=== PATIENT | female | born 1990 | race African-American/Black ===

== ENCOUNTER 2016-12-27 15:12 | Emergency (ER) | payer MEDICAID ==
[~2016-12-27 15:12] MED LIST: DOXY10TA PO; METR500T10 PO; PREN1CHW7 PO
[2016-12-27 15:14] VITALS: BP 164/84; PULSE 89; RESP 14; TEMP 98.2; O2SAT 99
[2016-12-27 15:40] VITALS: BP 125/70; PULSE 99; RESP 18; O2SAT 99
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
[2016-12-27] MEDS ORDERED: IOHEXOL 350 MG/ML 10 ML VIAL (for RAD DIAG) IV ONE (17:12)
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
[2017-02-11] MEDS ORDERED: METR500T10 PO (09:53)
[2017-02-17] MEDS ORDERED: TERC0.4C2 VAGINAL (13:35)
== END 2016-12-27 18:12 | disposition home or self-care (01) ==
LOC: NEPD 15:12
DX: O26.891 Other specified pregnancy related conditions, first trimester (principal); S10.93XA Contusion of unspecified part of neck, initial encounter; S10.91XA Abrasion of unspecified part of neck, initial encounter; S20.419A Abrasion of unspecified back wall of thorax, initial encounter; Z3A.14 14 weeks gestation of pregnancy; Y04.8XXA Assault by other bodily force, initial encounter; Y92.810 Car as the place of occurrence of the external cause; Y99.8 Other external cause status
CPT/HCPCS: 70498; 99284; Q9967

== ENCOUNTER → 2017-02-03 | Outpatient (CLI) | payer MEDICAID ==
[~2017-02-03] MED LIST changes: -DOXY10TA PO; -METR500T10 PO
== END ==
LOC: HPND 10:48
PROVIDERS: ATTEND Obstetrics & Gynecology
DX: O35.1XX0 Maternal care for (suspected) chromosomal abnormality in fetus, not applicable or unspecified (principal); O09.292 Supervision of pregnancy with other poor reproductive or obstetric history, second trimester; O09.212 Supervision of pregnancy with history of pre-term labor, second trimester; O26.22 Pregnancy care for patient with recurrent pregnancy loss, second trimester; O44.42 Low lying placenta NOS or without hemorrhage, second trimester; Z3A.19 19 weeks gestation of pregnancy
CPT/HCPCS: 76811; 76817

== ENCOUNTER → 2017-03-04 | Outpatient (CLI) | payer MEDICAID ==
[~2017-03-04] MED LIST changes: +FERR325T8 PO; +METR500T10 PO; +TERC0.4C2 VAGINAL
== END ==
LOC: HPND 13:58
PROVIDERS: ATTEND Obstetrics & Gynecology
DX: O09.292 Supervision of pregnancy with other poor reproductive or obstetric history, second trimester (principal); O09.212 Supervision of pregnancy with history of pre-term labor, second trimester; O44.42 Low lying placenta NOS or without hemorrhage, second trimester; Z3A.23 23 weeks gestation of pregnancy
CPT/HCPCS: 76816

== ENCOUNTER 2017-03-09 17:07 | Emergency (ER) | payer MEDICAID ==
[~2017-03-09 17:07] MED LIST changes: -FERR325T8 PO
--- NOTE | 2017-03-09 17:51 | PD ---
HPI Chief Complaint "passed out", blurry vision, cramping Date Seen: Mar 09, 2017 Time Seen: 17:47 Travel History International Travel<30 Days: No Contact w/Intl Traveler<30Days: No Known Affected Area: No History of Present Illness HPI 27-year-old G 10 P1 at 24 weeks today comes in today complaining of an episode where she passed out. Patient had complained to her OB provider of 2 prior occasions where she stood up and passed out and states that it happened again today right eye she was getting out of the shower. Patient denies chest pain, coughing, fatigue. She states that she does pass out fairly easily. She has not yet had her glucose tolerance test for . She also complains of some lower cramping in the groin that is mild. Patient has a history of a C- section and when she was 15 years old that resulted in an abruption and severe preeclampsia. Patient has been maintained on a baby aspirin and calcium this and has seen maternal medicine for continued care. Para: 1 : 10 Miscarriage: 2 : 6 History Past Medical History Medical History: Denies Significant Hx Obstetric History Obstetric History from an abruption was severe preeclampsia with delivery of a 2 lbs. 14 oz. child at [facility] Multiple of miscarriages and abortions Past Surgical History Narrative Surgical D&C 2 section Family History Family History: Negative Social History Alcohol Use: No Tobacco Use: No Substance Abuse: No Allergies-Medications (Allergen,Severity, Reaction): Coded Allergies: Phenergan (Verified Allergy, Severe, Itching, rash, 02/11/17) Home Meds Active Scripts Terconazole Vaginal Cream 0.4 % Cream1 Appl VAGINAL HS #45 GM Ref 0 For seven days Prov:Jing Santos 02/17/17 Metronidazole 500 Mg [id number] Mg PO BID #14 TAB Ref 0 Prov:Jing Santos 02/11/17 Vit W/ Ferric Phospha (Vitafol Gummies 3.33-0.333-34.8 mg)1 Chw Chw1 Chew PO DAILY #60 BOTTLE Ref 5 Prov:Becky Zepeda CNM [employer]OUNDS 11/17/16 Review of Systems Except as stated in HPI: all other systems reviewed are Neg Physical Exam Narrative GENERAL: Well-nourished, well-developed patient. SKIN: Warm and dry. HEAD: Normocephalic and atraumatic. EYES: No scleral icterus. No injection or drainage. ENT: No nasal drainage noted. Mucous membranes pink. Airway patent. NECK: Supple, trachea midline. No JVD. CARDIOVASCULAR: Regular rate and rhythm without murmurs, gallops, or rubs. RESPIRATORY: Breath sounds equal bilaterally. No accessory muscle use. ABDOMEN/GI: Abdomen soft, non-tender, bowel sounds present, no rebound, no guarding Gravid to [-22] weeks size Fundal Height: [-] GENITOURINARY: Deferred External Genitalia: intact and normal in appearance BUS glands: [-] Cervix: [-] Dilatation: [-] Effacement: [-] Station: [-] Presentation: [-] Membranes: [intact or ruptured] Uterine Contractions: [-] FHT's: Category: [1-] Baseline: [140-] Reactive: [-Moderate] Variability: [-Moderate] Decels: [-Absent] EXTREMITIES: No cyanosis or edema. BACK: Nontender without obvious deformity. No CVA tenderness. NEUROLOGICAL: Awake and alert. Motor and sensory grossly within normal limits. Five out of 5 muscle strength in all muscle groups. Normal speech. Data Data Vital Signs Reviewed: Yes Labs Laboratory Tests Test 03/09/17 17:45 White Blood Count 10.2 TH/MM3 Red Blood Count 3.42 MIL/MM3 Hemoglobin 10.2 GM/DL Hematocrit 29.5 % Mean Corpuscular Volume 86.4 FL Mean Corpuscular Hemoglobin 29.9 PG Mean Corpuscular Hemoglobin 34.7 % Concent Red Cell Distribution Width 14.4 % Platelet Count 221 TH/MM3 Mean Platelet Volume 8.5 FL Sodium Level 137 MEQ/L Potassium Level 3.9 MEQ/L Chloride Level 105 MEQ/L Carbon Dioxide Level 25.5 MEQ/L Anion Gap 7 MEQ/L Blood Urea Nitrogen 12 MG/DL Creatinine 0.64 MG/DL Estimat Glomerular Filtration 136 ML/MIN Rate Random Glucose 58 MG/DL Calcium Level 9.2 MG/DL [facility] Medical Record Reviewed: Yes Interpretation(s) EKG performed Sinus rhythm with RBBB, discussed with ED Dr Gooden who states this is normal for this age group Plan 27 yo at [id number], normal labs with mild anemia, syncopal episodes. No orthostatic hypotension identified Recommendations Add iron to vitamins Discussed dietary changes to limit hypoglycemia Consider dietary consult as outpatient if symptoms continue despite changes in eating habits Consider Holter and cardiology consult if symptoms persist Diagnosis Diagnosis: Primary Impression: 24 weeks gestation of Additional Impressions: History of placenta abruption Syncope Disposition: 01 DISCHARGE HOME Scripts Ferrous Sulfate 325 Mg (65 Mg Iron) [id number] Mg PO DAILY #30 TAB Ref 0 Prov:Brittney Munguia MD 03/09/17 Brittney Munguia MD Mar 09, 2017 17:51
[2017-03-09 18:25] LABS: HEMATOCRIT 29.5 % (35.0-46.0); MEAN CELL VOLUME 86.4 FL (80.0-100.0); MEAN CORPUSCULAR HEMOGLOBIN 29.9 PG (27.0-34.0); MEAN CORPUSCULAR HGB CONC 34.7 % (32.0-36.0); PLATELET COUNT 221 TH/MM3 (150-450); RED BLOOD COUNT 3.42 MIL/MM3 (4.00-5.30); RED CELL DISTRIBUTION WIDTH 14.4 % (11.6-17.2); REVIEW FLAG FINAL; WHITE BLOOD COUNT 10.2 TH/MM3 (4.0-11.0)
[2017-03-09 18:32] LABS: BICARBONATE 25.5 MEQ/L (21.0-32.0); POTASSIUM 3.9 MEQ/L (3.5-5.1)
[2017-03-09] MEDS ORDERED: FERR325T8 PO (18:58)
--- NOTE | 2017-03-10 21:09 | EKG ---
Date Performed: 03/09/2017 Time Performed: 17:54:56 PTAGE: 27 years EKG: Sinus rhythm RIGHT BUNDLE BRANCH BLOCK MODERATE VOLTAGE CRITERIA FOR LVH, CONSIDER NORMAL VARIANT ABNORMAL ECG PREVIOUS TRACING : 06/21/2011 20.19 Compared to prior tracing no significant change DOCTOR: Homer Garcia Interpretating Date/Time 03/10/2017 21:08:16
== END 2017-03-09 19:14 | disposition home or self-care (01) ==
LOC: HOBED 17:07
DX: O26.899 Other specified pregnancy related conditions, unspecified trimester (principal); R55 Syncope and collapse; O99.012 Anemia complicating pregnancy, second trimester; I45.10 Unspecified right bundle-branch block; R94.31 Abnormal electrocardiogram [ECG] [EKG]; Z3A.24 24 weeks gestation of pregnancy
CPT/HCPCS: 36415; 80048; 85027; 93005

== ENCOUNTER → 2017-04-08 | Outpatient (CLI) | payer MEDICAID ==
[~2017-04-08] MED LIST changes: +AMOX500C PO; +AMOX500T PO; +BUTA1CAP PO; +FERR325T8 PO; +HYDR50CA PO; -METR500T10 PO
== END ==
LOC: HPND 14:52
PROVIDERS: ATTEND Obstetrics & Gynecology
DX: O09.292 Supervision of pregnancy with other poor reproductive or obstetric history, second trimester (principal); O44.02 Complete placenta previa NOS or without hemorrhage, second trimester; O09.212 Supervision of pregnancy with history of pre-term labor, second trimester; Z3A.00 Weeks of gestation of pregnancy not specified
CPT/HCPCS: 76816

== ENCOUNTER 2017-04-29 15:15 | Emergency (ER) | payer MEDICAID ==
[~2017-04-29 15:15] MED LIST changes: -AMOX500C PO; -AMOX500T PO; -BUTA1CAP PO; -HYDR50CA PO
[2017-04-29 16:15] VITALS: BP 107/62; PULSE 116; PULSE 122
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
[2017-04-29 16:30] VITALS: RESP 16; TEMP 98
[2017-04-29] MEDS ORDERED: LACTATED RINGER'S 1000 ML INJ 1,000 ML IV ONE (17:00)
[2017-04-29 17:44] VITALS: PULSE 93
[2017-04-29] MEDS ORDERED: BUTA1CAP PO (17:47)
[2017-05-26] MEDS ORDERED: AMOX500C PO (13:18)
== END 2017-04-29 19:18 | disposition home or self-care (01) ==
LOC: HOBED 15:15
DX: O26.93 Pregnancy related conditions, unspecified, third trimester (principal); G43.909 Migraine, unspecified, not intractable, without status migrainosus; Z3A.31 31 weeks gestation of pregnancy
CPT/HCPCS: 96361; 96374; 99284; J3010; J7120

== ENCOUNTER 2017-06-03 08:29 | Emergency (ER) | payer MEDICAID ==
[~2017-06-03] VITALS: Ht 154.9 cm; Wt 88.5 kg
[~2017-06-03 08:29] MED LIST changes: +AMOX500C PO; +BUTA1CAP PO; -TERC0.4C2 VAGINAL
--- NOTE | 2017-06-03 09:42 | PD ---
HPI Travel History International Travel<30 Days: No Contact w/Intl Traveler<30Days: No Known Affected Area: No History of Present Illness HPI 27 yr old at 36/3 presents with intermittent cramping and spotting. Accompanied by co-worker. Reports that cramping in lower abdomen started last night and continued to the morning. She reports that she started to feel abdominal pressure and went to the bathroom. She felt constipated. As she was wiping herself, she noticed some light bright red blood mixed with mucus on tissue paper. She has had placental abruption in the past and was concerned. She reports good movement. She denies leakage of fluid, contractions, dysuria, CP, SOB, fevers, and N/V. She has been receiving care at [facility]. History Past Medical History Medical History: Denies Significant Hx Obstetric History Obstetric History [id number] 6 abortions, 3 miscarriages Previous at 28 weeks due to preeclampsia causing placental abruption Past Surgical History Narrative Surgical Previous Family History Narrative Family History Dad- HTN Social History Alcohol Use: No Tobacco Use: No Substance Abuse: No Allergies-Medications (Allergen,Severity, Reaction): Coded Allergies: promethazine (Unverified Allergy, Severe, Itching, rash, 05/24/17) Home Meds Active Scripts Ferrous Sulfate (Ferrous Sulfate) 325 Mg (65 Mg Iron) Tablet, 325 MG PO DAILY for Nutritional Supplement, #30 TAB 0 Refills Prov:Brittney Munguia MD 03/09/17 Vit W/ Ferric Phospha (Vitafol Gummies 3.33-0.333-34.8 mg) 1 Chw Chw, 1 CHEW PO DAILY, #60 BOTTLE 5 Refills Prov:Becky Zepeda CNM AUTOMOTIVE ENGINEERING TECHNICIAN 11/17/16 Discontinued Scripts Amoxicillin (Amoxicillin) 500 Mg Cap, 500 MG PO TID for Infection for 7 Days, # 21 CAP 0 Refills Prov:Alden Holcomb MD 05/26/17 Rdqdusvhmu-Tgkwgxsiizsec-Wmvoyjrx (Fioricet) 50-300-40 Mg Cap, 1-2 CAP PO Q6H Y for HEADACHE, #28 CAP 0 Refills Prov:William Watson II, MD 04/29/17 Review of Systems Except as stated in HPI: all other systems reviewed are Neg Physical Exam Narrative GENERAL: Well-nourished, well-developed patient. SKIN: Warm and dry. abdominal scar HEAD: Normocephalic and atraumatic. EYES: No scleral icterus. No injection or drainage. ENT: No nasal drainage noted. Mucous membranes pink. Airway patent. NECK: Supple, trachea midline. No JVD. CARDIOVASCULAR: Regular rate and rhythm without murmurs, gallops, or rubs. RESPIRATORY: Breath sounds equal bilaterally. No accessory muscle use. ABDOMEN/GI: Abdomen soft, mild tenderness lower abdomen on palpation, bowel sounds present, no rebound, no guarding SPECULUM EXAM: closed, normal cervix, no blood noted, no infections seen, mild, thin white physiological discharge FHT's: Category: 1 Baseline: 130 Reactive: yes Variability: moderate Decels: no EXTREMITIES: 2+ pitting edema NEUROLOGICAL: Awake and alert. Motor and sensory grossly within normal limits. Data Data Vital Signs Reviewed: Yes Labs UA- 1+ protein, otherwise, negative MDM Narrative Course / MDM 27 yr old [id number] presented with cramping and spotting. -Ultrasound on 05/24/17 showed anterior placenta, no previa -Take milk of Mg first, if constipated still persist, try miralax OTC -Bedrest for a few days -Take Tylenol and try heating pad for pain -Hydrate -Elevate legs to decrease swelling -Return to ED if symptoms persist Diagnosis Diagnosis: Primary Impression: Cramping affecting , antepartum Additional Impressions: Spotting affecting Previous section Disposition: 01 DISCHARGE HOME Condition: Good Tabitha Garcia MD R1 Jun 03, 2017 09:42
[2017-06-03] MEDS ORDERED: AMOX500T PO (11:08)
[2017-06-03] MEDS ORDERED: HYDR50CA PO (11:10)
== END 2017-06-03 10:10 | disposition home or self-care (01) ==
LOC: HOBED 08:29
DX: O26.853 Spotting complicating pregnancy, third trimester (principal); O34.219 Maternal care for unspecified type scar from previous cesarean delivery; Z3A.36 36 weeks gestation of pregnancy
CPT/HCPCS: 99284

== ENCOUNTER 2017-06-28 09:57 | Inpatient (IN) | payer MEDICAID ==
[2017-06-28] VITALS (10 sets, daily range): BP systolic 111–116; BP diastolic 63–71; PULSE 85–89; RESP 16–20; TEMP 97.9–98
[~2017-06-28] VITALS: Ht 154.9 cm; Wt 83.9 kg
[~2017-06-28 09:57] MED LIST changes: -AMOX500C PO; +AMOX500T PO; -BUTA1CAP PO; +FERR325T18 PO; -FERR325T8 PO
[2017-06-28] MEDS ORDERED: LACTATED RINGER'S 1000 ML INJ 1,000 ML IV ONE (11:22)
[2017-06-28 11:30] LABS: AUTOMATED NEUTROPHIL # 7.1 TH/MM3 (1.8-7.7); BASOPHIL % 0.5 % (0.0-2.0); EOSINOPHIL # 0.1 TH/MM3 (0-0.4); EOSINOPHIL % 0.7 % (0.0-4.0); HEMATOCRIT 27.3 % (35.0-46.0); HEMO FLAGS DIFF FINAL; LYMPH % 15.9 % (9.0-44.0); LYMPHOCYTE # 1.5 TH/MM3 (1.0-4.8); MEAN CELL VOLUME 76.9 FL (80.0-100.0); MEAN CORPUSCULAR HEMOGLOBIN 24.9 PG (27.0-34.0); MEAN CORPUSCULAR HGB CONC 32.4 % (32.0-36.0); MONO % 6.7 % (0.0-8.0); NEUT % 76.2 % (16.0-70.0); PLATELET COUNT 329 TH/MM3 (150-450); RED BLOOD COUNT 3.56 MIL/MM3 (4.00-5.30); RED CELL DISTRIBUTION WIDTH 15.9 % (11.6-17.2); WHITE BLOOD COUNT 9.3 TH/MM3 (4.0-11.0)
[2017-06-28 11:34] LABS: BACTERIA, URINE RARE /hpf; BLOOD, URINE NEG (NEG); COMMENT (UR) CULT NOT INDICATED; CULTURE IF INDICATED CULT NOT INDICATED; GLUCOSE,URINE NEG (NEG); KETONE, URINE NEG (NEG); NITRITE,URINE NEG (NEG); PH, URINE 6.5 (5.0-8.5); SQUAMOUS EPITHELIAL CELL URINE 3 /hpf (0-5); URINE COLOR YELLOW (YELLW/STRAW)
--- NOTE | 2017-06-28 11:34 | HHI.HP ---
HPI Chief Complaint Scheduled Date Seen: Jun 28, 2017 Time Seen: 11:30 Travel History International Travel<30 Days: No Contact w/Intl Traveler<30Days: No Known Affected Area: No History of Present Illness HPI Patient is a 27-year-old at 40 weeks and 0 days with a history of preeclampsia this and preeclampsia, placenta previa, placental abruption last who presents for a scheduled . She reports that during this she has had high blood pressure and has been diagnosed with preeclampsia this . She also reports that she has had some low blood sugar and she has passed out a couple times during the spring see. She reports that she has had contractions of the last couple days. She denies any vaginal bleeding, leakage of fluid. She reports movement. Weeks Gestation: 40 Para: 1 : 11 History Past Medical History Narrative Medical She denies chronic hypertension, asthma, diabetes. However she was diagnosed with preeclampsia during this and the last . Obstetric History Obstetric History history of prior section. Previous was complicated by placenta previa, placental abruption, severe preeclampsia with delivery at 28 weeks at [facility] years ago. This has been complicated by a diagnosis of preeclampsia as well as by low blood sugars causing syncope. Her previous op notes indicate a low transverse section without extension. Patient is been maintained on aspirin and calcium as recommended by maternal medicine. Patient stopped taking baby aspirin and vitamins about a week ago. She also stopped taking her iron supplement because of constipation. Patient was set up for a on June 28 at noon. Past Surgical History Narrative Surgical Prior Family History Narrative Family History Patient reports her father has hypertension. Her paternal grandmother has CHF, heart disease. Her maternal great grandmother had hypertension. Social History Narrative Social History Patient lives at home with her son. Alcohol Use: No Tobacco Use: No Substance Abuse: No Allergies-Medications (Allergen,Severity, Reaction): Coded Allergies: promethazine (Unverified Allergy, Severe, Itching, rash, 06/22/17) Home Meds Active Scripts Amoxicillin (Amoxicillin) 500 Mg Tab, 500 MG PO TID for Infection for 7 Days, # 21 TAB 0 Refills Prov:Brionna Logan CNMP 06/03/17 Vit W/ Ferric Phospha (Vitafol Gummies 3.33-0.333-34.8 mg) 1 Chw Chw, 1 CHEW PO DAILY, #60 BOTTLE 5 Refills Prov:ZepedaBecky FUMIGATOR AND STERILIZER 11/17/16 Discontinued Scripts Ferrous Sulfate (Ferrous Sulfate) 325 Mg (65 Mg Iron) Tablet, 325 MG PO DAILY for Nutritional Supplement, #30 TAB 0 Refills Prov:Brittney Munguia MD 03/09/17 Hydroxyzine Pamoate (Hydroxyzine Pamoate) 50 Mg Cap, 50 MG PO HS for 1 Day, #2 CAP 0 Refills Prov:Brionna Logan CNM FUMIGATOR AND STERILIZER 06/03/17 Narrative Medication Patient has not been taking vitamins, baby aspirin, iron supplement. Review of Systems General / Constitutional: No: Fever, Chills Eyes: No: Visual changes HENT: No: Headaches Cardiovascular: No: Chest Pain or Discomfort, Edema Respiratory: No: Short of Breath Gastrointestinal: Abdominal Pain, No: Nausea, Vomiting Genitourinary: No: Dysuria Musculoskeletal: Cramping, No: Edema Physical Exam 141/84, 1:15, 18, 98.6, pain 5 out of 10 133/86, 98 Narrative GENERAL: Well-nourished, well-developed patient. SKIN: Warm and dry. HEAD: Normocephalic and atraumatic. EYES: No scleral icterus. No injection or drainage. ENT: No nasal drainage noted. Mucous membranes pink. Airway patent. NECK: Supple, trachea midline. No JVD. CARDIOVASCULAR: Tachycardic rate and regular rhythm without murmurs, gallops, or rubs. RESPIRATORY: Breath sounds equal bilaterally. No accessory muscle use. ABDOMEN/GI: Abdomen soft, non-tender, bowel sounds present, no rebound, no guarding Gravid to 40 weeks size GENITOURINARY: Uterine Contractions: Irregular, every 3-5 minutes FHT's: Category: Category 1 Baseline: 135 Reactive: reactive Variability: moderate Decels: none EXTREMITIES: No cyanosis or edema. BACK: Nontender without obvious deformity. No CVA tenderness. NEUROLOGICAL: Awake and alert. Motor and sensory grossly within normal limits. Five out of 5 muscle strength in all muscle groups. Normal speech. Caprini VTE Risk Assessment Caprini VTE Risk Assessment: No/Low Risk (score <= 1) Caprini Risk Assessment Model Point Value = 1 Point Value = 2 Point Value = 3 Point Value = 5 Age 41-60 Minor surgery BMI > 25 kg/m2 Swollen legs Varicose veins or History of unexplained or recurrent spontaneous Oral contraceptives or hormone replacement Sepsis (< 1 month) Serious lung disease, including pneumonia (< 1 month) Abnormal pulmonary function Acute myocardial infarction Congestive heart failure (< 1 month) History of inflammatory bowel disease Medical patient at bed rest Age 61-74 Arthroscopic surgery Major open surgery (> 45 min) Laparoscopic surgery (> 45 min) Malignancy Confined to bed (> 72 hours) Immobilizing plaster cast Central venous access Age >= 75 History of VTE Family history of VTE Factor V Leiden Prothrombin 15211H Lupus anticoagulant Anticardiolipin antibodies Elevated serum homocysteine Heparin-induced thrombocytopenia Other congenital or acquired thrombophilia Stroke (< 1 month) Elective arthroplasty Hip, pelvis, or leg fracture Acute spinal cord injury (< 1 month) Prophylaxis Regimen Total Risk Factor Score Risk Level Prophylaxis Regimen 0-1 Low Early ambulation 2 Moderate Order ONE of the following: *Sequential Compression Device (SCD) *Heparin 5000 units SQ BID 3-4 Higher Order ONE of the following medications: *Heparin 5000 units SQ TID *Enoxaparin/Lovenox 40 mg SQ daily (WT < 150 kg, CrCl > 30 mL/min) *Enoxaparin/Lovenox 30 mg SQ daily (WT < 150 kg, CrCl > 10-29 mL/min) *Enoxaparin/Lovenox 30 mg SQ BID (WT < 150 kg, CrCl > 30 mL/min) AND/OR *Sequential Compression Device (SCD) 5 or more Highest Order ONE of the following medications: *Heparin 5000 units SQ TID (Preferred with Epidurals) *Enoxaparin/Lovenox 40 mg SQ daily (WT < 150 kg, CrCl > 30 mL/min) *Enoxaparin/Lovenox 30 mg SQ daily (WT < 150 kg, CrCl > 10-29 mL/min) *Enoxaparin/Lovenox 30 mg SQ BID (WT < 150 kg, CrCl > 30 mL/min) AND *Sequential Compression Device (SCD) Data Data Vital Signs Reviewed: Yes Orders Orders Complete Blood Count With Diff (06/28/17 11:12) Type And Screen (06/28/17 11:12) Urinalysis - C+S If Indicated (06/28/17 11:12) Specimen To Be Collected PRN (06/28/17 11:12) Admit To Inpatient (06/28/17 ) Code Status (06/28/17 11:22) Vital Signs (Adult) .ON ADMISSION (06/28/17 11:22) Activity Oob Ad Rosa (06/28/17 11:22) Heart (06/28/17 11:22) Urinary Catheter Management JOSE.Q8H (06/28/17 11:22) ^ Preps (06/28/17 11:22) Scd / Antolin / Foot Pump JOSE.QSHIFT (06/28/17 11:22) ^ Ultrasound For Locatio (06/28/17 11:22) Diet Npo (06/28/17 Lunch) Lactated Ringer's 1000 Ml Inj (Lr 1000 M (06/28/17 11:22) Lactated Ringer's 1000 Ml Inj (Lr 1000 M (06/28/17 11:52) Cefazolin 2 Gm Premix (Ancef 2 Gm Premix (06/28/17 12:30) Citric Acid-Sodium Citrate Liq (Bicitra (06/28/17 13:00) Drug Screen, Random Urine (06/28/17 11:22) Inpatient Certification (06/28/17 ) Specimen To Be Collected PRN (06/28/17 11:22) Labs Laboratory Tests Test 06/28/17 10:25 White Blood Count 9.3 Red Blood Count 3.56 Hemoglobin 8.9 Hematocrit 27.3 Mean Corpuscular Volume 76.9 Mean Corpuscular Hemoglobin 24.9 Mean Corpuscular Hemoglobin Concent 32.4 Red Cell Distribution Width 15.9 Platelet Count 329 Mean Platelet Volume 8.6 Neutrophils (%) (Auto) 76.2 Lymphocytes (%) (Auto) 15.9 Monocytes (%) (Auto) 6.7 Eosinophils (%) (Auto) 0.7 Basophils (%) (Auto) 0.5 Neutrophils # (Auto) 7.1 Lymphocytes # (Auto) 1.5 Monocytes # (Auto) 0.6 Eosinophils # (Auto) 0.1 Basophils # (Auto) 0.0 CBC Comment DIFF FINAL Differential Comment Assessment/Plan Problem List: (1) Preeclampsia ICD Codes: O14.90 - Unspecified pre-eclampsia, unspecified trimester (2) scheduled Assessment and Plan Patient is a 27-year-old at 40 weeks and 0 days with a history of preeclampsia this and preeclampsia, placenta previa, placental abruption last who presents for a scheduled . 1. scheduled -Admit to inpatient -Routine labs -Nothing by mouth -Ancef 2 g IV -LR IV -Monitor heart rate -Monitor vital signs -Anticipate uncomplicated 2. Preeclampsia -Monitor vital signs, especially blood pressure, closely Discussed with Dr. Watson. Discharge Planning Anticipate discharge in 3 days. Burton Mayer MD R2 Jun 28, 2017 11:34
[2017-06-28] MEDS ORDERED: ceFAZolin 2 GM PREMIX 50 ML IV SCH (11:45)
[2017-06-28] MEDS ORDERED: ACETAMINOPHEN 1000 MG/100 ML 100 ML IV ONE (11:52)
[2017-06-28] MEDS ORDERED: LACTATED RINGER'S 1000 ML INJ 1,000 ML IV SCH (11:52)
[2017-06-28] MEDS ORDERED: CITRIC ACID-SODIUM CITRATE LIQ 30 ML UDC PO SCH (12:00)
[2017-06-28] MEDS ORDERED: oxyCODONE/ACETAMINOPHEN 5 MG/325 MG TAB PO PRN (14:00)
[2017-06-28] MEDS ORDERED: OXYTOCIN 30 UNITS-500ML PREMIX 500 ML IV ONE (14:00)
[2017-06-28] MEDS ORDERED: SODIUM CHLORIDE 0.9% FLUSH 10 ML FLUSH IV FLUSH PRN (14:00)
[2017-06-28] MEDS ORDERED: KETOROLAC TROMETHAMINE 60 MG/2 ML (IM) VIAL IM PRN (14:00)
[2017-06-28] MEDS ORDERED: ZOLPIDEM TARTRATE 5 MG TAB PO PRN (14:00)
[2017-06-28] MEDS ORDERED: ACETAMINOPHEN 325 MG TAB PO PRN (14:00)
[2017-06-28] MEDS ORDERED: ONDANSETRON HCL 4 MG/2 ML VIAL IV PUSH PRN (14:00)
--- NOTE | 2017-06-28 14:36 | MP ---
cc: NIR OZUNA MD DATE OF SURGERY: 06/28/2017 PREOPERATIVE DIAGNOSIS Previous for repeat at 39 weeks. POSTOPERATIVE DIAGNOSIS Previous for repeat at 39 weeks. PROCEDURE PERFORMED Repeat low transverse section. SURGEON Walter. LIBRARY SPECIALIST [place], [facility]. ANESTHESIA Spinal. PRE-OP NOTE The patient is a 27-year-old black female, G2, P1, who had a previous and wants repeat . She has had an uneventful and done well. She understands the risks and benefits of surgery. PROCEDURE The patient was taken to the operating room and placed in supine position on the operating table. After adequate spinal anesthesia was administered she was prepped and draped for abdominal surgery. The previous Pfannenstiel incision was excised out and cast away. The incision was carried to the fascia. The fascia was dissected laterally and off the rectus muscle. The peritoneal cavity was entered sharply. The incision was extended superior and inferiorly. The bladder was placed upon the bladder blade. The incision was stretched open. The visceral peritoneum was then reflected off the lower uterine segment and placed on the bladder blade. A transverse hysterotomy was made and extended bilaterally and clear fluid noted. A male infant was delivered at 12:34 p.m. without complication, weight 2960 grams, 9 and 9, no complications with delayed cord cutting. Cord blood was obtained. The placenta extracted without difficulty. The uterus was then exteriorized and the hysterotomy closed in a running layer of 0 chromic followed by an imbricating suture of same. Hemostasis was achieved. The uterus was elevated and blood suctioned from the cul-de-sac and gutter, and the uterus placed in the peritoneal cavity. The parietal peritoneum was closed in a running layer of 2-0 Vicryl. The rectus muscle was re-approximated with stick ties of chromic. The fascia was closed in a running layer of 0 Vicryl. The subcutaneous tissue was re-approximated with a running 3-0 plain catgut. The skin was closed with subcuticular stitches of 3-0 Monocryl. A pressure dressing was applied. The estimated blood loss was 500 cc. There were no complications. Sponge and needle count correct x2. The patient went to the recovery room in stable condition. MD SHALINI Shaver/CHARLOTTE /1:49 PM /2:30 PM ELINA
[2017-06-28] MEDS ORDERED: EPIDURAL-NALOXONE HCL 0.4 MG/ML AMP IV PUSH PRN (14:45)
[2017-06-28] MEDS ORDERED: EPIDURAL-DO NOT ADMINISTER ANTICOAGULANTS PRN (14:45)
[2017-06-28] MEDS ORDERED: EPIDURAL-DIPHENHYDRAMINE HCL 50 MG/ML VIAL IV PUSH PRN (14:45)
[2017-06-28] MEDS ORDERED: EPIDURAL-NO SYSTEMIC NARCOTICS PRN (14:45)
[2017-06-28] MEDS ORDERED: HYDROmorphone HCL PF 1 MG/ML VIAL IV ONE (16:15)
[2017-06-28] MEDS ORDERED: HYDROmorphone HCL PF 1 MG/ML VIAL IV PRN (16:20)
[2017-06-28] MEDS ORDERED: diphenhydrAMINE HCL 50 MG/ML VIAL IM ONE (19:00)
[2017-06-28] MEDS: SODIUM CHLORIDE 0.9% FLUSH 10 ML FLUSH IV FLUSH SCH (19:42)
[2017-06-28] MEDS: LACTATED RINGER'S 1000 ML INJ 1,000 ML IV SCH (19:59)
[2017-06-29] VITALS (15 sets, daily range): BP systolic 101–143; BP diastolic 57–89; PULSE 82–105; RESP 16–20; TEMP 97.9–98.8
[2017-06-29] MEDS ORDERED: OXYTOCIN 30 UNITS-500ML PREMIX 500 ML IV PRN
[2017-06-29] MEDS: oxyCODONE/ACETAMINOPHEN 5 MG/325 MG TAB PO PRN ×5 (01:35→23:06)
[2017-06-29] MEDS: LACTATED RINGER'S 1000 ML INJ 1,000 ML IV SCH (03:55)
[2017-06-29 05:58] LABS: AUTOMATED NEUTROPHIL # 9.2 TH/MM3 (1.8-7.7); BASOPHIL % 0.3 % (0.0-2.0); EOSINOPHIL # 0.1 TH/MM3 (0-0.4); EOSINOPHIL % 0.8 % (0.0-4.0); LYMPH % 11.6 % (9.0-44.0); LYMPHOCYTE # 1.3 TH/MM3 (1.0-4.8); MEAN CELL VOLUME 76.4 FL (80.0-100.0); MEAN CORPUSCULAR HEMOGLOBIN 25.2 PG (27.0-34.0); MONO % 6.7 % (0.0-8.0); NEUT % 80.6 % (16.0-70.0); PLATELET COUNT 224 TH/MM3 (150-450); RED BLOOD COUNT 2.54 MIL/MM3 (4.00-5.30); RED CELL DISTRIBUTION WIDTH 16.2 % (11.6-17.2); WHITE BLOOD COUNT 11.4 TH/MM3 (4.0-11.0)
[2017-06-29 06:19] LABS: HEMO FLAGS DIFF FINAL
[2017-06-29 06:21] LABS: HEMATOCRIT 19.4 % (35.0-46.0)
[2017-06-29] MEDS: IBUPROFEN 600 MG TAB PO PRN ×2 (06:41→23:06)
[2017-06-29] MEDS: EPIDURAL-DIPHENHYDRAMINE HCL 50 MG CAP PO PRN ×2 (06:41→13:54)
--- NOTE | 2017-06-29 07:24 | HHI.OB ---
Subjective Post Operative Day: 1 Remarks doing well , ambulating , tolerating diet , bleeding moderate, baby doing well [ needs circ] Objective Vitals/I&O Vital Signs Date Time Temp Pulse Resp B/P (MAP) Pulse Ox O2 Delivery O2 Flow Rate FiO2 06/29/17 07:00 18 06/29/17 05:00 98.2 96 18 139/65 (89) 06/29/17 03:00 18 06/29/17 00:30 98.8 105 06/29/17 00:30 129/75 (93) 06/29/17 00:27 20 06/28/17 23:22 16 06/28/17 22:50 16 06/28/17 22:00 20 06/28/17 21:00 18 06/28/17 19:37 116/71 (86) 06/28/17 19:37 98.0 89 16 06/28/17 18:12 18 06/28/17 17:30 19 06/28/17 16:00 20 06/28/17 15:45 18 06/28/17 15:00 85 111/63 (79) 06/28/17 15:00 97.9 Result Diagram: 06/29/17 0529 Objective Remarks GENERAL: Well-nourished, well-developed patient. CARDIOVASCULAR: Regular rate and rhythm without murmurs, gallops, or rubs. RESPIRATORY: Breath sounds equal bilaterally. No accessory muscle use. ABDOMEN/GI: Abdomen soft, non-tender, bowel sounds present. Incision: Clean, dry and intact. Fundus: Firm, non-tender at umbilicus. GENITOURINARY: Light to moderate bleeding. EXTREMITIES: No cyanosis or edema, non-tender, without signs of DVT. Medications and IVs Current Medications Medications (Trade) Dose Ordered Sig/Arabella Route Start Time Stop Time Status Last Admin Lactated Ringer's 1,000 ml @ 100 mls/hr Q10H IV 06/28/17 19:00 06/29/17 14:59 06/29/17 03:55 Oxytocin 500 ml @ 100 mls/hr UNSCH X1 PRN IV 06/29/17 00:00 06/29/17 23:59 (NS Flush) 2 ml BID IV FLUSH 06/28/17 21:00 (NS Flush) 2 ml UNSCH PRN IV FLUSH 06/28/17 14:00 (Mylicon Chew) 80 mg QID PRN PO 06/28/17 14:00 (Tylenol) 650 mg Q6H PRN PO 06/28/17 14:00 (Motrin) 600 mg Q6H PRN PO 06/28/17 14:00 06/29/17 06:41 (Toradol Inj) 30 mg Q6H PRN IM 06/28/17 14:00 06/29/17 13:59 (Percocet 5-325 Mg) 1 tab Q4H PRN PO 06/28/17 14:00 (Percocet 5-325 Mg) 2 tab Q4H PRN PO 06/28/17 14:00 06/29/17 06:41 (Farheen-Colace) 2 tab Q12H PRN PO 06/28/17 14:00 (Ambien) 5 mg HS PRN PO 06/28/17 14:00 (M-M-R Ii Inj) 0.5 ml ONCE ONCE SQ 06/29/17 16:00 06/29/17 16:01 (Boostrix Inj) 0.5 ml ONCE ONCE IM 06/29/17 16:00 06/29/17 16:01 (Zofran Inj) 4 mg Q6H PRN IV PUSH 06/28/17 14:00 Miscellaneous Information NO SYSTEMIC NARCOTICS TO BE GIVEN FO... UNSCH PRN .XX 06/28/17 14:45 06/29/17 14:44 (Narcan Inj) 0.4 mg UNSCH PRN IV PUSH 06/28/17 14:45 06/29/17 14:44 (Benadryl Inj) 25 mg Q6H PRN IV PUSH 06/28/17 14:45 06/29/17 14:44 06/28/17 15:46 (Benadryl) 50 mg Q6H PRN PO 06/28/17 14:45 06/29/17 14:44 06/29/17 06:41 Miscellaneous Information ALL NURSING DEPARTMENTS UNSCH PRN .XX 06/28/17 14:45 06/29/17 14:44 Cefazolin Sodium/ Dextrose 50 ml @ 100 mls/hr Q8H IV 06/29/17 12:00 06/29/17 12:29 Assessment/Plan Problem List: (1) Preeclampsia ICD Codes: O14.90 - Unspecified pre-eclampsia, unspecified trimester (2) scheduled Assessment and Plan Patient is a 27-year-old at 40 weeks and 0 days with a history of preeclampsia this and preeclampsia, placenta previa, placental abruption last who presents for a scheduled . 1. scheduled postop day 1 , anemia due to blood loss asymptomatic but with Hgb less than 7 will give 2 units of blood Discussed with Dr. Watson. Discharge Planning Anticipate discharge in 3 days. William Watson II, MD Jun 29, 2017 07:24
[2017-06-29] MEDS ORDERED: SODIUM CHLOR 0.9% 250 ML INJ 250 ML IV ONE (08:30)
[2017-06-29] MEDS ORDERED: diphenhydrAMINE HCL 25 MG CAP PO PRN (08:30)
[2017-06-29] MEDS ORDERED: ACETAMINOPHEN 325 MG TAB PO PRN (08:30)
--- NOTE | 2017-06-29 09:25 | HHI.PR ---
Addendum to Inpatient Note Addendum Reason: Additional Documentation Additional Information Patient found to have tenderness of the left calf on physical exam. Denies chest pain, shortness of breath No significant swelling appreciated Ordering Doppler of the left leg to rule out DVT Canelo Lebron MD R1 Jun 29, 2017 09:25
[2017-06-29] MEDS: SODIUM CHLORIDE 0.9% FLUSH 10 ML FLUSH IV FLUSH SCH ×2 (10:45→21:00)
[2017-06-29] MEDS: DOCUSATE SODIUM 50 MG/SENNA 8.6 MG TAB PO PRN ×2 (11:06→23:06)
[2017-06-29] MEDS: SIMETHICONE 80 MG CHEWABLE TAB PO PRN ×2 (11:06→19:48)
--- NOTE | 2017-06-29 11:40 | RADRPT ---
EXAM DATE/TIME: 06/29/2017 10:43 [facility] COMPARISON: No previous studies available for comparison. INDICATIONS : Left calf pain. MEDICAL HISTORY : Pelvic inflammatory disease. Substance use. SURGICAL HISTORY : section. ENCOUNTER: Initial ACUITY: 1 day PAIN SCORE: 0/10 LOCATION: Left leg. TECHNIQUE: Venous ultrasound of the leg was performed from the inguinal ligament to the proximal calf. Real-reba e, color Doppler and spectral tracing, compression and augmentation techniques were used. FINDINGS: There is normal compressibility of the deep venous system from the inguinal region to the proximal ca lf. No echogenic clot is seen in the lumen of the common femoral, femoral, popliteal, and posterior tibial veins. There is a normal response of the venous system to proximal and distal augmentation an d respiration. CONCLUSION: Normal examination. Omi Fischer Jr., MD on June 29, 2017 at 11:36 Board Certified Radiologist. This report was verified electronically.
[2017-06-29] MEDS ORDERED: ceFAZolin 2 GM PREMIX 50 ML IV SCH (12:00)
[2017-06-29] MEDS ORDERED: MEASLES, MUMPS, RUBELLA VACCINE 0.5 ML VIAL SQ ONE (16:00)
[2017-06-29] MEDS ORDERED: DIPHTH/TETANUS/ACEL PERTUSSIS (BOOSTER) 0.5 ML VIAL/PFS IM ONE (16:00)
--- NOTE | 2017-06-29 17:18 | HHI.PR ---
Addendum to Inpatient Note Addendum Reason: Additional Documentation Additional Information S: Received page from nursing that patient was having abdominal pain. Patient reports that her she has especially bad abdominal pain when the nurses push on her belly. She is tolerating food well without nausea, vomiting, abdominal pain. She reports periumbilical pain. She reports that she has not passed gas or had a bowel movement since her . She has been bedbound during blood transfusion. She reports that she will go for a walk after receiving this first unit of PRBC. O: Gen.: Lying in bed in no acute distress GI/: Tinkling, hypoactive bowel sounds. No extraordinary tenderness to palpation, no rebound tenderness. Uterine fundus is firm and at the umbilicus. A/P: Discussed with patient that the most likely diagnosis is postoperative ileus. Recommended against narcotics/opiate pain medications as tolerated. Recommended walking as soon as possible to help get her bowels moving. Recommended patient let us know if her abdominal pain gets worse. Patient expressed understanding. Burton Mayer MD R2 Jun 29, 2017 17:18
[2017-06-30] MEDS: IBUPROFEN 600 MG TAB PO PRN ×3 (05:46→21:40)
[2017-06-30 08:10] VITALS: BP 138/90; PULSE 75; RESP 18; TEMP 98.3
[2017-06-30] MEDS: diphenhydrAMINE HCL 25 MG CAP PO PRN ×2 (09:31→18:06)
[2017-06-30] MEDS: oxyCODONE/ACETAMINOPHEN 5 MG/325 MG TAB PO PRN ×3 (09:31→20:19)
--- NOTE | 2017-06-30 11:01 | HHI.OB ---
Subjective Remarks Patient is a 27-year-old delivered at 40 weeks and 0 days. Patient is day 2 after . Patient's pain is well-controlled. Patient reports eating and drinking without any nausea or vomiting. Patient reports minimal bleeding that has improved from history. Patient still complains of lower abdominal pain with bending and standing. Patient has passed gas and has had a small bowel movement, which improved abdominal pain from yesterday. Patient is walking without lower extremity pain or shortness of breath. Patient reports desire for contraception set up by her outside provider and both formula and breast-feeding. Objective Vitals/I&O Vital Signs Date Time Temp Pulse Resp B/P (MAP) Pulse Ox O2 Delivery O2 Flow Rate FiO2 06/30/17 08:10 98.3 75 18 138/90 (106) 06/30/17 00:06 18 06/30/17 00:06 18 06/29/17 22:21 98.4 91 18 122/83 06/29/17 19:30 97.9 101 20 138/85 (102) 06/29/17 19:30 97.9 101 20 138/85 06/29/17 18:55 103 06/29/17 18:55 98.0 89 20 143/89 (107) 06/29/17 18:23 82 123/73 (90) 06/29/17 18:23 98.2 82 19 123/73 06/29/17 18:12 98.0 103 20 143/89 06/29/17 17:59 98.2 102 20 126/86 06/29/17 17:59 98.2 102 20 126/86 (99) 06/29/17 14:00 98.1 85 20 102/57 06/29/17 14:00 98.1 85 20 102/57 (72) 06/29/17 13:31 98.6 100 16 101/57 06/29/17 13:31 98.6 100 16 06/29/17 13:31 101/57 (72) 06/29/17 11:06 20 Intake & Output 06/30/17 06/30/17 07:00 19:00 Intake Total 400 ml Balance 400 ml Packed Cells 400 ml Result Diagram: 06/29/17 0529 Objective Remarks GENERAL: Well-nourished, well-developed patient. CARDIOVASCULAR: Regular rate and rhythm without murmurs, gallops, or rubs. RESPIRATORY: Breath sounds equal bilaterally. No accessory muscle use. ABDOMEN/GI: Abdomen soft, non-tender, bowel sounds present. Incision: Clean, dry and intact. Fundus: Firm, mildly tender along the left border of the fundus GENITOURINARY: Light to moderate bleeding. EXTREMITIES: No cyanosis or edema, non-tender, without signs of DVT. Medications and IVs Current Medications Medications (Trade) Dose Ordered Sig/Arabella Route Start Time Stop Time Status Last Admin (NS Flush) 2 ml BID IV FLUSH 06/28/17 21:00 06/29/17 10:45 (NS Flush) 2 ml UNSCH PRN IV FLUSH 06/28/17 14:00 (Mylicon Chew) 80 mg QID PRN PO 06/28/17 14:00 06/29/17 19:48 (Tylenol) 650 mg Q6H PRN PO 06/28/17 14:00 (Motrin) 600 mg Q6H PRN PO 06/28/17 14:00 06/30/17 05:46 (Percocet 5-325 Mg) 1 tab Q4H PRN PO 06/28/17 14:00 06/30/17 05:45 (Percocet 5-325 Mg) 2 tab Q4H PRN PO 06/28/17 14:00 06/30/17 09:31 (Farheen-Colace) 2 tab Q12H PRN PO 06/28/17 14:00 06/29/17 23:06 (Ambien) 5 mg HS PRN PO 06/28/17 14:00 (Zofran Inj) 4 mg Q6H PRN IV PUSH 06/28/17 14:00 (Benadryl) 25 mg Q4H PRN PO 06/30/17 09:15 06/30/17 09:31 Assessment/Plan Problem List: (1) Preeclampsia ICD Codes: O14.90 - Unspecified pre-eclampsia, unspecified trimester (2) scheduled Assessment and Plan Patient is a 27-year-old delivered at 40 weeks and 0 days. Patient is day 2 after dissection. Patient was counseled to do 6 weeks of pelvic rest. Patient was counseled to follow up in 1 and 6 weeks. Patient requested follow-up and contraception provided by her outside doctor. Patient was anemic following with a hemoglobin of 6.4, transfused with 2 units. CBC pending --AF VSS --Continue routine care --Motrin and Percocet when necessary for pain --Encourage OOB --Pelvic rest for 6 weeks will need follow-up appointment at that time. --Contraception: Plans to have her outside provider arrange this --Anticipate discharge today pending her H&H Seen and discussed with Dr. Hanson Discharge Planning Anticipate discharge today pending H&H Canelo Lebron MD R1 Jun 30, 2017 11:01
[2017-06-30 11:06] LABS: HEMATOCRIT 24.5 % (35.0-46.0); MEAN CELL VOLUME 78.9 FL (80.0-100.0); MEAN CORPUSCULAR HEMOGLOBIN 25.9 PG (27.0-34.0); MEAN CORPUSCULAR HGB CONC 32.8 % (32.0-36.0); PLATELET COUNT 213 TH/MM3 (150-450); RED CELL DISTRIBUTION WIDTH 16.4 % (11.6-17.2); REVIEW FLAG FINAL; WHITE BLOOD COUNT 9.6 TH/MM3 (4.0-11.0)
[2017-06-30] MEDS: DOCUSATE SODIUM 50 MG/SENNA 8.6 MG TAB PO PRN (15:31)
[2017-06-30] MEDS: FERROUS SULFATE 325 MG (65 MG ELEMENTAL IRON) TAB PO SCH (18:06)
[2017-06-30] MEDS: SIMETHICONE 80 MG CHEWABLE TAB PO PRN (18:06)
[2017-06-30 20:10] VITALS: BP 135/90; PULSE 83; RESP 16; TEMP 98
[2017-06-30 20:50] VITALS: BP 130/77; PULSE 66; RESP 16; TEMP 97.9
[2017-07-01] MEDS: oxyCODONE/ACETAMINOPHEN 5 MG/325 MG TAB PO PRN ×3 (01:36→10:19)
[2017-07-01] MEDS: IBUPROFEN 600 MG TAB PO PRN ×2 (04:26→10:19)
[2017-07-01] MEDS: diphenhydrAMINE HCL 25 MG CAP PO PRN ×2 (04:31→11:41)
[2017-07-01 07:50] VITALS: BP 144/91; PULSE 73; RESP 16; TEMP 97.9
[2017-07-01 08:11] VITALS: BP 96/64; PULSE 94
[2017-07-01] MEDS ORDERED: IBUP-232 PO (10:00)
[2017-07-01] MEDS ORDERED: FERR325T18 PO (10:00)
[2017-07-01] MEDS ORDERED: OXYC1TAB63 PO (10:00)
--- NOTE | 2017-07-01 10:01 | HHI.DCPOC ---
Discharge Care Plan Report Symptoms to Your Doctor -Temperature above 100.5 degrees -Redness, of incision or excessive or foul smelling drainage -Unusual pain or calf pain -Increased vaginal bleeding -Painful or difficulty urinating -Feelings of extreme sadness or anxiety after 2 weeks Goals to Promote Your Health * To prevent worsening of your condition and complications * To maintain your health at the optimal level Directions to Meet Your Goals Take your medications as prescribed Follow your dietary instruction Follow activity as directed Ensure plenty of rest for recovery Drink fluids for hydration Keep your appointments as scheduled Take your immunizations and boosters as scheduled If your symptoms worsen call your PCP, if no PCP go to Urgent Care Center or Emergency Room Smoking is Dangerous to Your Health. Avoid second hand smoke Call the 24-hour crisis hotline for domestic abuse at Canelo Lebron MD R1 Jul 01, 2017 10:01
[2017-07-01 10:10] VITALS: BP 153/98; PULSE 94; RESP 20; O2SAT 100
[2017-07-01] MEDS: DOCUSATE SODIUM 50 MG/SENNA 8.6 MG TAB PO PRN (10:19)
[2017-07-01 10:50] VITALS: BP 142/91; PULSE 76
--- NOTE | 2017-07-01 11:16 | HHI.OB ---
Subjective Remarks Patient is a 27-year-old delivered at 40 weeks and 0 days. Patient is day 3 after . Patient's pain is well-controlled. Patient reports eating and drinking without any nausea or vomiting. Patient reports minimal bleeding. Patient has passed gas and bowel movements. Patient is walking without lower extremity pain or shortness of breath. Patient reports desire for arrange for contraception with outside provider and plans to both formula and breast-feeding. OB team was paged by nursing staff after patient reported symptoms of chest tightness, being tearful, and having trouble catching her breath while having conversation with the pediatric team. She was found to have elevated blood pressures with systolic in the 150s. The symptoms resolved after several minutes and was thought likely to be due to anxiety. Patient reports being stressed regarding her newborns circumcision, and pediatric team was discussing this when patient experienced symptoms. Objective Vitals/I&O Vital Signs Date Time Temp Pulse Resp B/P (MAP) Pulse Ox O2 Delivery O2 Flow Rate FiO2 07/01/17 10:50 76 142/91 (108) 07/01/17 10:10 94 20 153/98 (116) 07/01/17 10:10 100 07/01/17 08:11 94 96/64 (75) 07/01/17 07:50 73 16 144/91 (108) 07/01/17 07:50 97.9 06/30/17 20:50 130/77 (94) 06/30/17 20:50 97.9 66 16 06/30/17 20:10 98.0 83 16 135/90 (105) Result Diagram: 06/30/17 1055 Objective Remarks GENERAL: Well-nourished, well-developed patient. CARDIOVASCULAR: Regular rate and rhythm without murmurs, gallops, or rubs. RESPIRATORY: Breath sounds equal bilaterally. No accessory muscle use. ABDOMEN/GI: Abdomen soft, non-tender, bowel sounds present. Incision: Clean, dry and intact. Fundus: Firm, mildly tender along the left border of the fundus -improved from yesterday GENITOURINARY: Light to moderate bleeding. EXTREMITIES: No cyanosis or edema, non-tender, without signs of DVT. Medications and IVs Current Medications Medications (Trade) Dose Ordered Sig/Arabella Route Start Time Stop Time Status Last Admin (NS Flush) 2 ml BID IV FLUSH 06/28/17 21:00 06/29/17 10:45 (NS Flush) 2 ml UNSCH PRN IV FLUSH 06/28/17 14:00 (Mylicon Chew) 80 mg QID PRN PO 06/28/17 14:00 06/30/17 18:06 (Tylenol) 650 mg Q6H PRN PO 06/28/17 14:00 (Motrin) 600 mg Q6H PRN PO 06/28/17 14:00 07/01/17 10:19 (Percocet 5-325 Mg) 1 tab Q4H PRN PO 06/28/17 14:00 06/30/17 05:45 (Percocet 5-325 Mg) 2 tab Q4H PRN PO 06/28/17 14:00 07/01/17 10:19 (Farheen-Colace) 2 tab Q12H PRN PO 06/28/17 14:00 07/01/17 10:19 (Ambien) 5 mg HS PRN PO 06/28/17 14:00 (Zofran Inj) 4 mg Q6H PRN IV PUSH 06/28/17 14:00 (Benadryl) 25 mg Q4H PRN PO 06/30/17 09:15 07/01/17 04:31 (Ferrous Sulfate) 325 mg BID@,17 PO 06/30/17 17:00 06/30/17 18:06 Assessment/Plan Problem List: (1) Preeclampsia ICD Codes: O14.90 - Unspecified pre-eclampsia, unspecified trimester (2) Delivery by elective section ICD Codes: O82 - Delivery by elective section Assessment and Plan Patient is a 27-year-old delivered at 40 weeks and 0 days. Patient is day 3 after . Patient was counseled to do 6 weeks of pelvic rest. Patient was counseled to follow up in 1 and 6 weeks. Patient requested follow-up and contraception provided by her outside doctor. Patient's H&H responded appropriately following 2 transfusions. Patient found to have elevated blood pressures this morning following panic-like symptoms including chest tightness, shortness of breath, being tearful for 4-5 minutes. Symptoms resolved, but blood pressures were 153/98 and repeat blood pressures were 142/ 91. --AF VSS --Continue routine care --Motrin and Percocet when necessary for pain --Encourage OOB --Pelvic rest for 6 weeks will need follow-up appointment at that time. --Contraception: Plans to have her outside provider arrange this --CBC, CMP, urine uric acid, urine protein ordered for preeclampsia rule out Seen and discussed with Dr. Hanson Discharge Planning Anticipate discharge today pending preeclampsia labs and blood pressure. Canelo Lebron MD R1 Jul 01, 2017 11:16
[2017-07-01] MEDS: FERROUS SULFATE 325 MG (65 MG ELEMENTAL IRON) TAB PO SCH (11:33)
[2017-07-01 13:15] LABS: AUTOMATED NEUTROPHIL # 6.1 TH/MM3 (1.8-7.7); BASOPHIL % 0.6 % (0.0-2.0); EOSINOPHIL # 0.1 TH/MM3 (0-0.4); EOSINOPHIL % 1.7 % (0.0-4.0); HEMATOCRIT 28.4 % (35.0-46.0); HEMO FLAGS DIFF FINAL; LYMPH % 18.1 % (9.0-44.0); LYMPHOCYTE # 1.5 TH/MM3 (1.0-4.8); MEAN CELL VOLUME 79.4 FL (80.0-100.0); MEAN CORPUSCULAR HEMOGLOBIN 25.9 PG (27.0-34.0); MEAN CORPUSCULAR HGB CONC 32.7 % (32.0-36.0); MONO % 6.2 % (0.0-8.0); NEUT % 73.4 % (16.0-70.0); PLATELET COUNT 278 TH/MM3 (150-450); RED BLOOD COUNT 3.58 MIL/MM3 (4.00-5.30); RED CELL DISTRIBUTION WIDTH 17.1 % (11.6-17.2); WHITE BLOOD COUNT 8.3 TH/MM3 (4.0-11.0)
[2017-07-01 13:35] LABS: ANION GAP 9 MEQ/L (5-15); AST (GOT) 66 U/L (15-37); BICARBONATE 24.4 MEQ/L (21.0-32.0); BLOOD UREA NITROGEN 6 MG/DL (7-18); CHLORIDE 103 MEQ/L (98-107); GLOMERULAR FILTRATION RATE 124 ML/MIN (>89); POTASSIUM 3.2 MEQ/L (3.5-5.1); SODIUM (NA) 136 MEQ/L (136-145)
[2017-07-01 13:38] LABS: ALKALINE PHOSPHATASE 180 U/L (45-117); ALT (GPT) 30 U/L (10-53); TOTAL BILIRUBIN ADULT 0.7 MG/DL (0.2-1.0)
[2017-07-01 13:47] VITALS: BP 143/92; PULSE 86; TEMP 98; O2SAT 98
[2017-07-01] MEDS ORDERED: POTASSIUM CHLORIDE 20 MEQ CONTROLLED RELEASE TAB PO ONE (14:15)
== END 2017-07-01 14:19 | disposition home or self-care (01) | DRG 765 ==
LOC: H2EB 09:57 → H1EA 14:47
PROVIDERS: ADMIT Obstetrics & Gynecology Maternal & Fetal Medicine; ATTEND Obstetrics & Gynecology Maternal & Fetal Medicine
PROC: 10D00Z1 Extraction of Products of Conception, Low, Open Approach (ICD-10-PCS; principal; 2017-06-28)
PROC: 30233N1 Transfusion of Nonautologous Red Blood Cells into Peripheral Vein, Percutaneous Approach (ICD-10-PCS; 2017-06-29)
DX: O34.211 Maternal care for low transverse scar from previous cesarean delivery (principal); K91.89 Other postprocedural complications and disorders of digestive system; K56.7 Ileus, unspecified; O14.94 Unspecified pre-eclampsia, complicating childbirth; D50.0 Iron deficiency anemia secondary to blood loss (chronic); O99.62 Diseases of the digestive system complicating childbirth; O99.345 Other mental disorders complicating the puerperium; F41.9 Anxiety disorder, unspecified; Z37.0 Single live birth; Z3A.40 40 weeks gestation of pregnancy
CPT/HCPCS: 36430; 59025; 76937; 80053; 80307; 81001; 82570; 84156; 84560; 85025; 85027; 86850; 86900; 86901; 86920; 93971; J0131; J0690; J1170; J1200; J1885; J2590; J7050; J7120; P9016; Q0163